=== PATIENT | female | born 1980 | race African-American/Black ===

== ENCOUNTER → 2017-06-16 | Outpatient (CLI) | payer BC, OTHER ==
[2015-04-23 20:00] VITALS: BP 94/54
--- NOTE | 2017-06-16 12:57 | KCIC ---
CT MAXILLOFACIAL WO CONTRAST Indication: Chronic sinusitis. . Congestion and drainage. Comparison: No comparison is available. Contrast: None Exposure: One or more of the following individualized dose reduction techniques were utilized for this examination: 1. Automated exposure control 2. Adjustment of the mA and/or kV according to patient size 3. Use of iterative reconstruction technique. Findings: Minimal polyp or mucosal thickening of the left maxillary sinus. The frontal, ethmoid, maxillary and sphenoid sinuses are otherwise clear. The ostiomeatal units are patent. Nasal septum deviated towards the right. No aggressive bone destruction. The orbits appear unremarkable. IMPRESSION: No CT evidence of acute sinusitis. Electronically signed by: Anton Montes MD (06/16/2017 12:53 PM) [id number]
== END | disposition home or self-care (01) ==
LOC: KCIC CT 11:08
PROVIDERS: ATTEND Otolaryngology
DX: J32.9 Chronic sinusitis, unspecified (principal)
CPT/HCPCS: 70486

== ENCOUNTER → 2017-09-07 | Outpatient (CLI) | payer BC, OTHER ==
[2017-09-07] MEDS: GADOBUTROL 7.5 MMOL/7.5 ML VIAL IV ×4 (11:00)
== END | disposition home or self-care (01) ==
LOC: MRI 10:27
DX: G93.2 Benign intracranial hypertension (principal)
CPT/HCPCS: 70553; A9585

== ENCOUNTER → 2018-06-21 | Outpatient (CLI) | payer BC, OTHER ==
[2015-04-23 20:00] VITALS: BP 94/54
[2018-06-21 12:46] LABS: PROTHROMBIN TIME PATIENT 12.7 SEC (11.7-14.0)
== END | disposition home or self-care (01) ==
LOC: LAB 12:03
PROVIDERS: ATTEND Psychiatry & Neurology Neurology
DX: G93.2 Benign intracranial hypertension (principal)
CPT/HCPCS: 36415; 82947; 85049; 85610

== ENCOUNTER → 2018-07-07 | Outpatient (CLI) | payer BC, OTHER ==
[~2018-07-07] MED LIST: LIDOCAINE WITH 8.4% SOD BICARB 3 ML DISP.SYRIN. INJ ONE
[2018-07-07 10:11] VITALS: BP 123/67
[2018-07-07 10:45] LABS: CSF PROTEIN 37.5 mg/dL (15.0-45.0)
[2018-07-07 11:04] LABS: CSF CLARITY CLEAR; CSF COLOR COLORLESS; CSF RBC COUNT 0; CSF WBC COUNT 2
[2018-07-07 11:11] VITALS: BP 107/65
--- NOTE | 2018-07-07 11:31 | RAD ---
Fluoroscopically guided lumbar puncture, 07/07/2018: History: Headaches, possible pseudotumor cerebri Under local anesthesia, aseptic conditions and fluoroscopic guidance a lumbar puncture was performed at the mid L2 level utilizing a 6 inch 20-gauge spinal needle. Good clear CSF flow was obtained. The opening pressure was measured at 22 cm of water. Approximate 7 cc of CSF was removed and sent to lab for appropriate studies. The closing pressure was measured at 19 cm of water. The spinal needle was then removed and hemostasis obtained. 1.5 minutes of fluoroscopy time was utilized. One fluoroscopic spot image was recorded. The patient tolerated the procedure well. She will be monitored by the nursing staff for 3 hours and then discharged if no problems develop.
[2018-07-07 12:11] VITALS: BP 112/70
[2018-07-07 13:01] VITALS: BP 117/64
== END | disposition home or self-care (01) ==
LOC: RAD 08:18
PROVIDERS: ATTEND Psychiatry & Neurology Neurology
DX: G93.2 Benign intracranial hypertension (principal); R51 Headache
CPT/HCPCS: 62270; 82945; 84157; 87102; 89051